=== PATIENT | male | born 1945 | race Caucasian/White ===

== ENCOUNTER 2020-10-12 18:43 | Emergency (ER) | payer MEDICARE, OTHER ==
[~2020-10-12] VITALS: Ht 162.6 cm; Wt 56.4 kg
[2020-10-12 18:58] VITALS: TEMP 97
[2020-10-12] MEDS ORDERED: PRINIVIL10 MG PO (19:17)
[2020-10-12] MEDS ORDERED: LIPITOR 40MG TA40 MG PO (19:17)
[2020-10-12] MEDS ORDERED: ARICEPT10 MG PO (19:17)
[2020-10-12] MEDS ORDERED: HYTRIN 2MG CAPSU2 MG PO (19:17)
[2020-10-12] MEDS ORDERED: NAMENDA5 MG PO (19:18)
[2020-10-12] MEDS ORDERED: ASPIRIN 81M81 MG/TA2 PO (19:18)
[2020-10-12] MEDS ORDERED: MELATONIN EXTRA1 TAB PO (19:20)
[2020-10-12 19:42] LABS: BASO # 0.1 (0.0-0.2); BASO % 0.7 % (0.0-2.0); EOS # 0.2 (0.0-0.7); EOS % 2.2 % (0-4.0); GRAN # 4.6 (1.4-6.5); GRAN % 61.7 % (42.2-75.2); HEMATOCRIT 44.7 % (42.0-52.0); HEMOGLOBIN 15.3 g/dl (13.5-18.0); LYMPH # 1.9 (1.2-3.4); LYMPH % 26.1 % (20.0-51.0); MEAN CELL VOLUME 96 fl (80.0-100.0); MEAN CORPUSCULAR HEMOGLOBIN 33 pg (27.0-31.0); MEAN CORPUSCULAR HGB CONC 34 g/dl (33.0-37.0); MEAN PLATELET VOLUME 10.4 fl (7.4-10.4); MONO # 0.7 (0.1-0.6); PLATELET COUNT 177 K/mm3 (130-400); RED BLOOD COUNT 4.64 M/mm3 (4.20-5.60); REDCELL DISTRIBUTION WIDTH-CV 12.7 % (11.5-14.5)
[2020-10-12 19:50] LABS: COLLECTION METHOD CLEAN CATCH
[2020-10-12 19:55] LABS: ALANINE AMINOTRANSFERASE 29 U/L (4-49); ALBUMIN 4.1 gm/dL (3.5-5.0); ALKALINE PHOSPHATASE 54 U/L (50-136); ANION GAP 5 mmol/L (7-16); AST,SGOT 37 U/L (15-37); BILIRUBIN,TOTAL 0.5 mg/dL (0.0-1.0); BLOOD UREA NITROGEN 29 mg/dL (9-20); CALCIUM 9.7 mg/dL (8.4-10.2); CARBON DIOXIDE 32 mmol/L (22-30); CHLORIDE 104 mmol/L (98-107); CREATININE, serum 0.96 (0.66-1.25); GLUCOSE 96 mg/dL (74-106); POTASSIUM 3.9 mmol/L (3.4-5.0); SODIUM 141 mmol/L (137-145); TOTAL PROTEIN 6.8 gm/dL (6.4-8.2)
[2020-10-12 20:06] LABS: C-REACTIVE PROTEIN < 0.5 mg/dL (0.0-0.9)
[2020-10-12 20:12] LABS: MUCOUS Present /lpf; PH 6 (5-8); SQUAMOUS EPITHELIAL None Seen /hpf; URINE APPEARANCE Hazy; URINE BACTERIA None Seen /hpf; URINE BILIRUBIN Negative (NEGATIVE); URINE BLOOD 3+ (NEGATIVE); URINE CALCIUM OXALATE CRYSTAL Present /hpf; URINE COLOR Yellow; URINE GLUCOSE Negative (NEGATIVE); URINE KETONE Negative (NEGATIVE); URINE LEUKOCYTE ESTERASE Negative (NEGATIVE); URINE NITRATE Negative (NEGATIVE); URINE PROTEIN(semi-quant) 1+ (NEGATIVE); URINE RBC >50 /hpf; URINE UROBILINOGEN Negative (NEGATIVE)
[2020-10-12 22:58] VITALS: BP 137/85; PULSE 77
== END 2020-10-12 22:52 | disposition home or self-care (01) ==
LOC: COL.ER 18:43
PROVIDERS: Physician Assistant
DX: N20.0 Calculus of kidney (principal); I10 Essential (primary) hypertension; F03.90 Unspecified dementia, unspecified severity, without behavioral disturbance, psychotic disturbance, mood disturbance, and anxiety; E78.5 Hyperlipidemia, unspecified; N40.0 Benign prostatic hyperplasia without lower urinary tract symptoms; Z87.891 Personal history of nicotine dependence; Z79.82 Long term (current) use of aspirin
CPT/HCPCS: J7030; Q9967

== ENCOUNTER 2020-11-10 11:04 | Day surgery (SDC) | payer MEDICARE ==
[2020-11-10] VITALS (7 sets, daily range): BP systolic 110–137; BP diastolic 54–66; PULSE 57–79; TEMP 97.3–97.8
[~2020-11-10] VITALS: Ht 162.6 cm; Wt 57.1 kg
[~2020-11-10 11:04] MED LIST: ARICEPT10 MG PO; ASPIRIN 81M81 MG/TA2 PO; HYTRIN 2MG CAPSU2 MG PO; LIPITOR 40MG TA40 MG PO; MELATONIN EXTRA1 TAB PO; NAMENDA5 MG PO; PRINIVIL10 MG PO
[2020-11-10] MEDS ORDERED: CALTRATE 600 +1 TAB PO (11:41)
[2020-11-10] MEDS ORDERED: CENTRUM SILVER1 CTB PO (11:41)
[2020-11-10] MEDS ORDERED: TURMERIC500 MG PO (11:42)
[2020-11-10] MEDS ORDERED: EPA FISH OIL1 SGL PO (11:42)
--- NOTE | 2020-11-10 12:00 | NUR ---
The patient ambulated back to [facility] independently using a steady gait and appeared to tolerate the activity well. Vital signs obtained. Consent signed. 20G IV started in right wrist with one stick, LR infusing without difficulty. Heart Reg. Lungs clear. Bowel sounds audible. Call light is within reach. The patient's , who is his DPOA, signed his consent for surgery due to his dementia. The nurse is unable to assess suicide risk due to the patient's history of dementia. Will continue to monitor the patient.
[2020-11-10] MEDS ORDERED: PYRIDIUM 100MG100 MG PO (14:48)
--- NOTE | 2020-11-10 15:15 | NUR ---
The patient arrived back to [facility] from the recovery room at this time. The patient appears drowsy but arouses easily to his name. Post operative vital signs were started at this time. The patient's at bedside at this time. Call light is within reach. Will continue to monitor the patient.
--- NOTE | 2020-11-10 15:30 | NUR ---
The patient appears to be resting quietly on the cart at this time. Respirations even and unlabored. remains at his bedside. Will continue to monitor the patient.
--- NOTE | 2020-11-10 15:45 | NUR ---
The patient appears a little more alert at this time. The patient's requests some grape juice for him to try. Will continue to monitor the patient.
--- NOTE | 2020-11-10 16:06 | NUR ---
The patient has tried some juice and apperaed to tolerate it well. The patient is able to open his eyes when asked by his . The was given a urinal for if the patient has the urge to void. Call light remains within reach. Will continue to moniror the patient.
--- NOTE | 2020-11-10 16:30 | NUR ---
The patient appears restless in the bed. The patient has attempted to void but has not been successful. The reports a small amount of blood drainage on the end of the penis and on his legs.
--- NOTE | 2020-11-10 16:45 | NUR ---
The patient was bladder scanned x4 with a largest result of [address] Kay was notified and gave the order that the patient can be discharged without voiding.
--- NOTE | 2020-11-10 16:50 | NUR ---
Discharge instructions were reviewed with the patient's and she verbalized understanding and has no questions for the nurse at this time. The patient is dressed and ready to be escorted out. The patient's IV to his right wrist was removed and a pressure dressing was applied to the site.
--- NOTE | 2020-11-10 16:53 | NUR ---
The patient was escorted out via wheelchair to a private vehicle by [facility]. The patient's belongings and discharge paperwork were sent with him. The patient's is present to drive him home.
== END 2020-11-10 16:55 | disposition home or self-care (01) ==
LOC: SDCO 11:04
DX: N20.1 Calculus of ureter (principal); I10 Essential (primary) hypertension; M19.90 Unspecified osteoarthritis, unspecified site; F03.90 Unspecified dementia, unspecified severity, without behavioral disturbance, psychotic disturbance, mood disturbance, and anxiety; E78.5 Hyperlipidemia, unspecified; Z79.82 Long term (current) use of aspirin; Z20.822 Contact with and (suspected) exposure to COVID-19; Z79.899 Other long term (current) drug therapy
CPT/HCPCS: C1769; C2617; J0690; J2405; J2704; J7120; Q9967